=== PATIENT | male | born 1970 | race Caucasian/White ===

== ENCOUNTER 2019-01-31 07:30 | Day surgery (SDC) | payer OTHER ==
[~2019-01-31 07:30] MED LIST: AVALIDE 300-121 EACH PO; NORVASC5 MG PO; TROPOL XL PO
== END 2019-01-31 13:15 | disposition home or self-care (01) ==
LOC: AMB-ENDOS 07:30
DX: D12.2 Benign neoplasm of ascending colon (principal)

== ENCOUNTER 2020-01-30 05:42 | Day surgery (SDC) | payer OTHER | END 2020-01-30 09:35 | disposition home or self-care (01) | LOC: CIR.AMB 05:42 | PROVIDERS: ATTEND Colon & Rectal Surgery | DX: D12.0 Benign neoplasm of cecum (principal); D12.4 Benign neoplasm of descending colon; Z20.828 Contact with and (suspected) exposure to other viral communicable diseases ==